=== PATIENT | male | born 1965 | race Caucasian/White ===

== ENCOUNTER → 2018-03-15 | Outpatient (CLI) | payer OTHER ==
[~2018-03-15] MED LIST: CHILD IBUP100 MG/5 M PO; CHLORPROMAZINE25 M1 PO; CLINDAMYCI75 MG/5 ML PO; DEXAMETHASONE 44 M1 PO; HYDROCODONE-ACE10 ML PO; HYDROCODONE-APA1 TA1 PO; LEVOXYL25 MCG PO; NEURONTIN100 MG PO; PROTONIX40 M1 PO; TYLENOL325 MG PO; XANAX 0.25 MG0.25 MG PO
--- NOTE | 2018-03-29 22:10 | ONC ---
[place] [address] RADIATION ONCOLOGY NOTE Name: KENYA BROWN Room: [facility]#: [id number] Admission: 03/15/18 Attend Phys: Piter Marie MD Discharge: Date of : 61 Report #: [id number] THIS REPORT FOR: //name// CC: Dr. Caio Love MD DATE OF PROCEDURE: 03/15/2018 REFERRING PHYSICIANS: Caio Santoyo DO; Kvng Johnson MD; Aleajndra Love MD [facility] phone is [phone]. PRIMARY SITE AND HISTOPATHOLOGY: The patient had a stage PERLA base of the tongue cancer and received chemotherapy and radiation therapy. The radiation therapy was completed on 08/20/2016. PROCEDURE: Nasopharyngolaryngoscopy. FINDINGS: On nasopharyngolaryngoscopy, after administration of 2% viscous lidocaine orally and 2% viscous lidocaine to the left nostril; there were no visible lesions in the nasopharynx. There were no visible lesions in the posterior oropharynx. The base of tongue had no visible lesions. The true vocal cords were normally mobile bilaterally and there were no visible lesions involving the vocal cords and there was no evidence of head and neck cancer. Thank you for allowing me to participate in the care of this patient. <ELECTRONICALLY SIGNED> By: Piter Marie MD 03/29/18 2210 1028 1916MD mando Crump
--- NOTE | 2018-03-29 22:43 | ONC ---
[place] [address] RADIATION ONCOLOGY NOTE Name: BROWNKENYA Gelacio Room: [facility]#: [id number] Admission: 03/15/18 Attend Phys: Piter Marie MD Discharge: Date of : 61 Report #: [id number] THIS REPORT FOR: //name// CC: Caio Love MD DATE OF SERVICE: 03/15/2018 REFERRING PHYSICIANS: Caio Santoyo DO; Piter Marie MD; Kvng Johnson MD; Alejandra Love MD [facility] phone is [phone]. PRIMARY SITE AND HISTOPATHOLOGY: The patient received chemotherapy and radiation therapy for a stage PERLA base of tongue cancer. He completed radiation treatments on 08/20/2016. INTERVAL NOTE: The patient eats a normal diet. He says he can eat anything he wishes to. In the past, he was eating fish, chicken, stir gerber. His taste has pretty much returned back to normal. MEDICATIONS: He is taking 25 mcg of levothyroxine. He takes a multivitamin. SOCIAL HISTORY: Cigarettes: The patient does not smoke cigarettes. REVIEW OF SYSTEMS: RESPIRATORY: Breathing was stable. He was not short of breath during his appointment. MUSCULOSKELETAL: He has good range of motion of his upper extremities. PHYSICAL EXAMINATION: VITAL SIGNS: The patient weighed 162.8 pounds on 03/15/2018, 160 pounds on 08/31/2017. On 03/15/2018, blood pressure was 124/78, pulse 66, respirations 22, oxygen saturation 98% on room air. LYMPH NODES: He had no palpable cervical or supraclavicular lymphadenopathy. HEAD, EYES, EARS, NOSE AND THROAT: Mouth had no suspicious visible lesions. Mouth had no suspicious palpable lesions. On nasopharyngolaryngoscopy, after administration of 2% viscous lidocaine orally and 2% viscous lidocaine to the left nostril; there were no visible lesions in the nasopharynx or posterior oropharynx. The base of tongue had no visible lesions. The true vocal cords are normally mobile bilaterally without visible lesions. HEART: Had a regular rate and rhythm without murmur. LUNGS: were Clear to auscultation. LABORATORY DATA: From 03/03/2018, sodium was 129, it was 128 on 12/05/2017 and it was 133 on 08/24/2017. On 03/03/2018, potassium was 4.8, BUN was 10, [place] [address] RADIATION ONCOLOGY NOTE Name: KENYA BROWN Room: [facility]#: [id number] Admission: 03/15/18 Attend Phys: Piter Marie MD Discharge: Date of : 61 Report #: [id number] creatinine was 0.95. TSH was 3.15, which was within normal limits with him taking 25 mcg of levothyroxine per day. From 12/05/2017, his hemoglobin was 13.6, platelets were 229,000 white blood cells were 4.2. ASSESSMENT AND PLAN: 1. History of base of tongue cancer- There is no evidence of base of tongue cancer at this time. He has an appointment with his medical oncologist, Dr. Love, on 06/07/2018 and she is going to be checking lab work. I wrote for a requisition for a complete blood count and basic metabolic panel in about 6 months and I asked the patient to schedule a follow up wappointment with me afterwards. 2. Hypothyroidism-The patient was prescribed 25 mcg of levothyroxine and he was given a requisition for a TSH in about 6 months. He was asked to schedule a followup appointment to see me afterwards. 3. Dental care- The patient was given a refill for PreviDent 1.1% gel that he applies to his teeth and he says he sees his dentist about every 6 months. Thank you for allowing me to participate in the care of this patient. <ELECTRONICALLY SIGNED> By: Piter Marie MD 03/29/18 2243 1034 1932Dkathy Marie MD /nt
== END | disposition home or self-care (01) ==
LOC: M.RTH 03:56
DX: Z85.810 Personal history of malignant neoplasm of tongue (principal); E03.9 Hypothyroidism, unspecified; Z79.899 Other long term (current) drug therapy; Z88.0 Allergy status to penicillin; Z88.2 Allergy status to sulfonamides; Z79.891 Long term (current) use of opiate analgesic

== ENCOUNTER → 2018-08-30 | Outpatient (CLI) | payer OTHER ==
--- NOTE | 2018-09-09 14:45 | ONC ---
[place] [address] RADIATION ONCOLOGY NOTE Name: KENYA BROWN Room: [facility]#: [id number] Admission: 08/30/18 Attend Phys: Piter Marie MD Discharge: Date of : 61 Report #: [id number] THIS REPORT FOR: //name// CC: Dr. Caio Love MD DATE OF SERVICE: 08/30/2018 REFERRING PHYSICIANS: aCio Santoyo DO; Kvng Johnson MD; Alejandra Love MD. [facility] phone is [phone]. PRIMARY SITE AND HISTOPATHOLOGY: The patient had a stage PERLA base of tongue cancer and received chemotherapy and radiation therapy. Radiation therapy was completed on 08/20/2016. PROCEDURE: Nasopharyngolaryngoscopy. FINDINGS: On nasopharyngolaryngoscopy, after administration of 2% viscous lidocaine orally and 2% viscous lidocaine to the left nostril, there were no suspicious visible lesions in the nasopharynx. There were no suspicious visible lesions in the posterior oropharynx. The base of tongue, had no obvious suspicious visible lesions. The true vocal cords were normally mobile bilaterally and there were no visible lesions involving the vocal cords. There is no evidence of head and neck cancer. Thank you for allowing me to participate in the care of this patient. <ELECTRONICALLY SIGNED> By: Piter Marie MD 09/09/18 1445 1152 [id number] Marie MD /nt
--- NOTE | 2018-09-09 14:48 | ONC ---
[place] [address] RADIATION ONCOLOGY NOTE Name: BROWNKENYA Brizuela Room: [facility]#: [id number] Admission: 08/30/18 Attend Phys: Piter Marie MD Discharge: Date of : 61 Report #: [id number] THIS REPORT FOR: //name// CC: Dr. Caio Johnson MD DATE OF SERVICE: 08/30/2018 REFERRING PHYSICIANS: Alejandra Love MD; Kvng Johnson MD; Caio brewer DO. [facility] phone is [phone]. PRIMARY SITE AND HISTOPATHOLOGY: The patient received chemotherapy and radiation therapy for a stage PERLA base of tongue cancer. He completed radiation treatments on 08/20/2016. INTERVAL NOTE: The patient eats a regular diet. He can eat foods such as fish, chicken, and stir-gerber. He tries to apply the 1.1% PreviDent to his teeth. He says he is not always compliant in doing that in the evenings. MEDICATIONS: Include 25 mcg of levothyroxine. SOCIAL HISTORY: Cigarettes: The patient does not smoke cigarettes. REVIEW OF SYSTEMS: RESPIRATORY: Breathing was stable. He was not short of breath during his appointment. MUSCULOSKELETAL: He has good range of motion of his upper extremities. PHYSICAL EXAMINATION: VITAL SIGNS: The patient weighed 162.2 pounds on 08/30/2018, 162.8 pounds on 03/15/2018. On 08/30/2018, blood pressure was 123/92, pulse 72, respirations 22, oxygen saturation 90%. HEAD, EYES, EARS, NOSE AND THROAT: Mouth had no suspicious visible lesions. Mouth had no suspicious palpable lesions. On nasopharyngolaryngoscopy, after administration of 2% viscous lidocaine orally and 2% viscous lidocaine to the left nostril, there were no visible lesions in the nasopharynx or posterior oropharynx. The base of tongue had no visible lesions. True vocal cords were normally bilaterally without visible lesions. HEART: Had a regular rate and rhythm without murmur. LUNGS: were clear to auscultation. LABORATORY DATA: From 08/25/2018, sodium 129, potassium 4.2, BUN 9, [place] [address] RADIATION ONCOLOGY NOTE Name: KENYA BROWN Room: [facility]#: [id number] Admission: 08/30/18 Attend Phys: Piter Marie MD Discharge: Date of : 61 Report #: [id number] 0.86. TSH was 3.82, which was within normal limits with him taking 25 mcg of levothyroxine per day and then, white blood cell count was 3.2, hemoglobin 13.7, platelets 206,000. ASSESSMENT AND PLAN: 1. History of base of tongue cancer- There is no evidence of base of tongue cancer at this time. The patient is scheduled for lab work and a neck and chest CT that was ordered by his medical oncologist on 11/27/2018 and then he is scheduled to see his medical oncologist on 11/30/2018. I went ahead and gave the patient a requisition for a TSH, basic metabolic panel, complete blood count in 02/2019. The patient was asked to schedule a followup appointment to see me afterwards. 2. Hypothyroidism- The patient was given a refill for 25 mcg of levothyroxine. He was given a requisition for TSH in about 6 months. He was asked to schedule a followup appointment to see me afterwards. 3. Dental care- The patient was encouraged to use his PreviDent 1.1% gel every night and he was given a refill for the PreviDent. Thank you for allowing me to participate in the care of this patient. <ELECTRONICALLY SIGNED> By: Piter Marie MD 09/09/18 1448 1158 1907Piter Marie MD /nt
== END ==
LOC: M.RTH 04:58
DX: E03.9 Hypothyroidism, unspecified (principal); Z85.810 Personal history of malignant neoplasm of tongue

== ENCOUNTER → 2019-06-08 | Outpatient (CLI) | payer BC ==
--- NOTE | ~2019-06-08 | ONC ---
[place] [address] RADIATION ONCOLOGY NOTE Name: KENYA BROWN Room: [facility]#: [id number] Admission: 06/08/19 Attend Phys: Piter Marie MD Discharge: Date of : 61 Report #: [id number] THIS REPORT FOR: //name// CC: Caio Marie DATE OF SERVICE: 06/08/2019 RADIATION/ONCOLOGY FOLLOWUP NOTE REFERRING PHYSICIANS: Alejandar Love MD; Kvng Johnson MD; Caio Santoyo DO LOCATION: [facility], phone is [phone]. PRIMARY SITE AND HISTOPATHOLOGY: The patient received chemotherapy and radiation therapy for stage 4A base of tongue cancer and completed radiation treatments on 08/20/2016. INTERVAL NOTE: The patient needs a normal diet. He can eat any food such as fish, chicken stir gerber. MEDICATIONS: 25 mcg of levothyroxine per day. SOCIAL HISTORY: Cigarettes: The patient does not smoke cigarettes. REVIEW OF SYSTEMS: RESPIRATORY: Breathing was stable. He was not short of breath during his appointment. MUSCULOSKELETAL: He has good range of motion of his upper extremities. PHYSICAL EXAMINATION: VITAL SIGNS: The patient weighed 156.2 pounds on 06/08/2019 and 162.2 pounds 08/30/2018 and blood pressure 132/93, oxygen saturation 100%, pulse 72, respirations 16. LYMPH NODES: He had no palpable cervical or supraclavicular lymphadenopathy. HEAD, EYES, EARS AND THROAT: Mouth had no suspicious visible lesions or suspicious palpable lesions. On nasopharyngolaryngoscopy, after administration of 2% viscous lidocaine orally and 2% viscous lidocaine to the left nostril, there were no visible lesions in the nasopharynx, posterior oropharynx. Base of tongue had no visible lesions. True vocal cords were normally mobile bilaterally. HEART: Had a regular rate and rhythm without murmur. LUNGS: Clear to auscultation. LABORATORY DATA: From 05/31/2019, hemoglobin was 13.9, platelets 196,000, white blood cell count was 4.8 and from 06/06/2019, sodium 129, potassium 4.8, BUN 10, [place] [address] RADIATION ONCOLOGY NOTE Name: KEVINKENYA Gelacio Room: [facility]#: [id number] Admission: 06/08/19 Attend Phys: Piter Marie MD Discharge: Date of : 61 Report #: [id number] creatinine 0.79 and from 05/31/2019, TSH was 4.56. RADIOLOGIC DATA: Neck and chest CT performed on 11/28/2018 showed no evidence of recurrent mass or cervical lymphadenopathy, stable CT chest without metastatic disease. ASSESSMENT AND PLAN: 1. History of base of tongue cancer. There is no evidence of base of tongue cancer at this time. The patient is scheduled for lab work and a neck and chest CT on 11/27/2019 by his medical oncologist, Dr. Love, and scheduled to see on 11/29/2019. Lab work will be ordered in about 1 year and the patient was asked to schedule a followup appointment to see me afterwards. 2. Hypothyroidism. The patient was given a refill for 25 mcg of levothyroxine and the patient will have a TSH ordered in about 1 year. He was asked to schedule a followup appointment to see me afterwards. 3. Dental care. The patient will be given a refill for PreviDent gel, so he can continue to use for dental care. Thank you for allowing me to participate in the care of this patient. By: [id number] [id number] Marie MD /johnathan
--- NOTE | ~2019-06-08 | ONC ---
[address] [address] RADIATION ONCOLOGY NOTE Name: KENYA BROWN Room: [facility]#: [id number] Admission: 06/08/19 Attend Phys: Piter Marie MD Discharge: Date of : 61 Report #: [id number] THIS REPORT FOR: //name// CC: Caio Marie DATE OF SERVICE: 06/08/2019 RADIATION ONCOLOGY PROCEDURE NOTE REFERRING PHYSICIANS: Alejandra Love MD, Kvng Johnson MD and Caio Santoyo DO [facility] phone is [phone]. PRIMARY SITE AND HISTOPATHOLOGY: The patient has stage 4A base of tongue cancer and received chemotherapy and radiation therapy. Radiation therapy was completed on 08/20/2016. PROCEDURE: Nasopharyngolaryngoscopy. FINDINGS: On nasopharyngolaryngoscopy, after administration of 2% viscous lidocaine orally and 2% viscous lidocaine to the left nostril, there were no suspicious visible lesions in the nasopharynx. There were no suspicious visible lesions in the posterior oropharynx. The base of tongue had no obvious suspicious visible lesions. The true vocal cords were normally mobile bilaterally without visible lesions. There were no visible lesions involving the vocal cords. There was no evidence of head and neck cancer. Thank you for allowing me to participate in the care of this patient. By: [id number] mando Maier
== END ==
LOC: M.RTH 03-02 09:30
DX: Z08 Encounter for follow-up examination after completed treatment for malignant neoplasm (principal); E03.9 Hypothyroidism, unspecified; Z85.810 Personal history of malignant neoplasm of tongue

== ENCOUNTER → 2020-06-06 | Outpatient (CLI) | payer BC ==
--- NOTE | 2020-06-08 16:13 | ONC ---
[place] [address] RADIATION ONCOLOGY NOTE Name: KENYA BROWN Room: [facility]#: [id number] Admission: 06/06/20 Attend Phys: Piter Marie MD Discharge: Date of : 61 Report #: [id number] THIS REPORT FOR: //name// CC: Dr. Caio Johnson MD DATE OF SERVICE: 06/06/2020 PROCEDURE NOTE REFERRING PHYSICIANS: Alejandra Love MD; Dr. Santoyo; Kvng Johnson MD [facility] phone is [phone]. PRIMARY SITE AND HISTOPATHOLOGY: The patient had a stage PERLA base of tongue cancer and he received chemotherapy and radiation therapy. The radiation therapy was completed on 08/20/2016. PROCEDURE: Nasopharyngolaryngoscopy. FINDINGS: On nasopharyngolaryngoscopy, after administration of 2% viscous lidocaine orally and 2% viscous lidocaine to the left nostril, there were no suspicious visible lesions in the nasopharynx. There were no suspicious visible lesions in the posterior oropharynx. The base of tongue had no obvious suspicious visible lesions. The true vocal cords were normally mobile bilaterally without visible lesions. There was no evidence of head and neck cancer. Thank you for allowing me to participate in the care of this patient. <ELECTRONICALLY SIGNED> By: Piter Marie MD 06/08/20 1613 1250 1256MD mando Crump
--- NOTE | 2020-06-08 16:42 | ONC ---
[address] [address] RADIATION ONCOLOGY NOTE Name: KEVINKENYA Brizuela Room: [facility]#: [id number] Admission: 06/06/20 Attend Phys: Piter Marie MD Discharge: Date of : 61 Report #: [id number] THIS REPORT FOR: //name// CC: Dr. Caio Johnson MD DATE OF SERVICE: 06/06/2020 RADIATION ONCOLOGY FOLLOWUP NOTE REFERRING PHYSICIANS: 1. Alejandra Love MD 2. Kvng Johnson MD 3. Caio Santoyo DO [facility] phone is [phone]. PRIMARY SITE AND HISTOPATHOLOGY: The patient received chemotherapy and radiation therapy for a stage PERLA base of tongue cancer. He completed radiation treatments on 08/20/2016. INTERVAL NOTE: The patient eats a regular diet. He eats foods such as fish and chicken stir gerber. He uses Advil as needed for arthritic pains. He applies PreviDent to his teeth with his finger. MEDICATIONS: 25 mcg of levothyroxine per day. SOCIAL HISTORY: Cigarettes: The patient does not smoke cigarettes. REVIEW OF SYSTEMS: RESPIRATORY: Breathing was stable. He was not short of breath during his appointment. MUSCULOSKELETAL: He has good range of motion of his upper extremities. PHYSICAL EXAMINATION: VITAL SIGNS: The patient weighed 166.6 pounds on 06/06/2020, he was 156.2 pounds on 06/08/2019. On 06/06/2020, blood pressure was 167/95 and that was rechecked, it was 146/78 when it was rechecked. Pulse was 66, respirations were 20, temperature 98.2 degrees Fahrenheit, oxygen saturations 98%. HEART: Had a regular rate and rhythm without murmur. LUNGS: were clear to auscultation. LABORATORY DATA: From 05/30/2020, sodium was 133, potassium 5.0, BUN was 11, creatinine 0.93. TSH was elevated at 5.72 with normal levels being 0.35-5 [place] [address] RADIATION ONCOLOGY NOTE Name: KEVINKENYA Gelacio Room: [facility]#: [id number] Admission: 06/06/20 Attend Phys: Pietr Marie MD Discharge: Date of : 61 Report #: [id number] his free T4 was 0.8. The patient also had a complete blood count on 11/27/2019 at [facility] and hemoglobin was 14.7, platelets 266,000, white blood cells 5.4. Sodium 131, potassium 4.1, BUN 13, creatinine 0.87. RADIOLOGIC DATA: The patient had a neck CT on 11/27/2019 and that revealed no recurrent base of tongue mass or cervical lymphadenopathy and he also had a chest CT on 11/27/2019 which showed no evidence of thoracic metastatic disease. ASSESSMENT AND PLAN: 1. History of base of tongue cancer- There is no evidence of head and neck cancer at this time. The patient is scheduled for lab work and a neck CT and chest CT by his medical oncologist, Dr. Love and those are scheduled for 12/01/2020 and he is scheduled to see Dr. Love on 12/04/2020. The patient was given a requisition for a basic metabolic panel in about 1 year and the patient was asked to follow up with me afterwards. 2. Hypothyroidism- The patient's levothyroxine was increased from 25 mcg per day to 50 mcg per day and a TSH was ordered in 1 year and the patient was asked to schedule a followup appointment to see me afterwards. 3. Dental care- The patient was given a refill for PreviDent gel which he applies to his teeth at night. Thank you for allowing me to participate in the care of this patient. <ELECTRONICALLY SIGNED> By: Piter Marie MD 06/08/20 1642 1257 1432Dkathy Marie MD /nt
== END | disposition home or self-care (01) ==
LOC: M.RTH 08:55
PROVIDERS: ATTEND Radiology Radiation Oncology
DX: Z08 Encounter for follow-up examination after completed treatment for malignant neoplasm (principal); Z85.810 Personal history of malignant neoplasm of tongue; E03.9 Hypothyroidism, unspecified; Z98.890 Other specified postprocedural states; Z79.899 Other long term (current) drug therapy